=== PATIENT | female | born 1950 | race Caucasian/White ===

== ENCOUNTER → 2019-09-01 09:56 | Outpatient (BNVA) | payer MEDICARE, BC, SELFPAY | PROVIDERS: Family Provider Family Medicine; Visit Provider Specialist | DX: R29.90 Unspecified symptoms and signs involving the nervous system (principal); M50.90 Cervical disc disorder, unspecified, unspecified cervical region; G43.709 Chronic migraine without aura, not intractable, without status migrainosus | CPT/HCPCS: 99214 ==

== ENCOUNTER 2020-06-19 12:17 | Outpatient (CLI) | payer MEDICARE, BC, OTHER, SELFPAY ==
--- NOTE | 2020-06-19 12:45 | USCV_ITS ---
Meagan Gaytan Age: 69 Gender: F : 1950 Exam Date: 06/19/2020 12:54 Ordering Phys: Nhung Wiley MD ([email or web address]) Technologist: Purnima Nguyen Exam Location: [facility] – [place] Indication: SOB BP: 120 / 80 HR: 70 Rhythm: Sinus Technical Quality: Adequate MEASUREMENTS (Male / Female) Normal Values 2D ECHO LV Diastolic Diameter PLAX 3.4 cm 4.2 - 5.9 / 3.9 - 5.3 cm LV Systolic Diameter PLAX 2.0 cm LV Chamber Size 3.4 cm IVS Diastolic Thickness 1.3 cm 0.6 - 1.0 / 0.6 - 0.9 cm IVS Systolic Thickness 1.5 cm LVPW Diastolic Thickness 1.1 cm 0.6 - 1.0 / 0.6 - 0.9 cm LVPW Systolic Thickness 1.3 cm RV Chamber Size 3.4 cm LVOT Diameter 2.0 cm LV Ejection Fraction 2D Teich 73.5 % LV Ejection Fraction MOD 2C 60.1 % LV Ejection Fraction 2C AL 60.1 % LA Diameter 2.6 cm LA Width 1.8 cm LA Height 3.4 cm RA Width 3.3 cm RA Height 2.5 cm Aorta at Sinotubular Diameter 3.7 cm M-MODE LV Diastolic Diameter MM 2.5 cm 4.2 - 5.9 / 3.9 - 5.3 cm LV Systolic Diameter MM 1.6 cm LV Ejection Fraction MM Teich 66.8 % IVS Diastolic Thickness MM 0.8 cm 0.6 - 1.0 / 0.6 - 0.9 cm IVS Systolic Thickness MM 0.8 cm LVPW Diastolic Thickness MM 0.8 cm 0.6 - 1.0 / 0.6 - 0.9 cm LVPW Systolic Thickness MM 0.8 cm Aortic Annulus Diameter 3.5 cm LA Ao Ratio MM 0.8 MV E Point Septal Separation 0.2 cm DOPPLER AV Peak Velocity 141.0 cm/s LVOT Peak Velocity 114.0 cm/s AV Area Cont Eq vti 3.0 cm squared AV Area Cont Eq pk 2.5 cm squared MV Area PHT 3.9 cm squared Mitral E to A Ratio 1.3 MV E' Velocity 51.5 cm/s Mitral E to MV E' Ratio 10.2 Mitral E to LV E' Lateral Ratio 10.1 Mitral E to LV E' Septal Ratio 10.4 TR Peak Velocity 228.3 cm/s TR Peak Gradient 20.8 mmHg TR Mean Velocity 179.3 cm/s TR Mean Gradient 13.8 mmHg TR Velocity Time Integral 65.7 cm TV Peak E Velocity 46.0 cm/s Right Atrial Pressure 3.0 mmHg Pulmonary Artery Systolic Pressu 23.8 mmHg PV Peak Velocity 50.0 cm/s RV Acceleration Time 0.1 s RV Ejection Time 0.3 s RV AcT/ET 0.3 FINDINGS Left Ventricle Normal left ventricular cavity size. Normal left ventricular systolic function. No regional wall motion abnormalities. Left ventricular ejection fraction is estimated at 66 %. Grade I/IV diastolic dysfunction (abnormal relaxation filling pattern), normal to mildly elevated filling pressures. Right Ventricle The right ventricle is normal in size and function. Right Atrium The right atrium is normal in size. Left Atrium The left atrium is normal in size. Mitral Valve Moderately thickened mitral valve. No mitral valve stenosis. Mild-moderate mitral valve regurgitation. Aortic Valve Aortic valve sclerosis without stenosis or regurgitation. Tricuspid Valve Structurally normal tricuspid valve without significant stenosis or regurgitation. Pulmonary artery systolic pressure is normal. Pulmonic Valve Structurally normal pulmonic valve without significant stenosis. There is no pulmonic regurgitation. Pericardium Normal pericardium without effusion. Aorta Normal ascending aorta dimension. CONCLUSIONS 1-Normal left ventricular cavity size. Normal left ventricular systolic function. No regional wall motion abnormalities. Left ventricular ejection fraction is estimated at 66 %. Grade I/IV diastolic dysfunction (abnormal relaxation filling pattern), normal to mildly elevated filling pressures. 2-Moderately thickened mitral valve. No mitral valve stenosis. Mild-moderate mitral valve regurgitation. 3-Aortic valve sclerosis without stenosis or regurgitation. 4-Right atrial pressure is around 5 mm of mercury. 5-There are no prior echocardiogram studies to compare. Nhung Wiley MD (Electronically Signed) Final Date: 27 Jun 2020 22:47 S
== END 2020-06-19 12:18 | disposition home or self-care (01) ==
LOC: US 12:17
PROVIDERS: PCP Family Medicine; Visit Provider Internal Medicine Cardiovascular Disease
DX: R06.02 Shortness of breath (principal); I05.9 Rheumatic mitral valve disease, unspecified; I35.8 Other nonrheumatic aortic valve disorders
CPT/HCPCS: 93306

== ENCOUNTER → 2020-08-22 13:48 | Outpatient (BNVA) | payer MEDICARE, BC, OTHER, SELFPAY | PROVIDERS: PCP Family Medicine; Visit Provider Specialist | DX: M41.20 Other idiopathic scoliosis, site unspecified (principal); M62.81 Muscle weakness (generalized); M79.7 Fibromyalgia; M50.90 Cervical disc disorder, unspecified, unspecified cervical region | CPT/HCPCS: 99214 ==

== ENCOUNTER 2020-09-13 09:26 | Outpatient (RCR) | payer MEDICARE, BC, OTHER, SELFPAY | END 2020-09-16 23:59 | disposition home or self-care (01) | LOC: SPT 09:26 | PROVIDERS: PCP Family Medicine; Referring Provider Specialist; Visit Provider Specialist | DX: M41.20 Other idiopathic scoliosis, site unspecified (principal) | CPT/HCPCS: 97110; 97162 ==

== ENCOUNTER 2020-09-17 06:00 | Outpatient (RCR) | payer MEDICARE, BC, OTHER, SELFPAY | END 2020-10-17 23:59 | disposition home or self-care (01) | LOC: SPT 06:00 | PROVIDERS: PCP Family Medicine; Referring Provider Specialist; Visit Provider Specialist | DX: M41.20 Other idiopathic scoliosis, site unspecified (principal) | CPT/HCPCS: 97110 ==

== ENCOUNTER → 2020-11-29 10:37 | Outpatient (BNVA) | payer MEDICARE, BC, OTHER, SELFPAY | PROVIDERS: PCP Family Medicine; Visit Provider Specialist | DX: M79.7 Fibromyalgia (principal); R53.83 Other fatigue; M41.20 Other idiopathic scoliosis, site unspecified; I77.819 Aortic ectasia, unspecified site | CPT/HCPCS: 99214 ==

== ENCOUNTER → 2020-12-15 09:36 | Outpatient (BNVA) | payer MEDICARE, BC, OTHER, SELFPAY | PROVIDERS: PCP Family Medicine; Visit Provider Family Medicine | DX: Z13.6 Encounter for screening for cardiovascular disorders (principal); I10 Essential (primary) hypertension; Z86.39 Personal history of other endocrine, nutritional and metabolic disease; K59.09 Other constipation; Z86.010 Personal history of colon polyps; Z68.22 Body mass index [BMI] 22.0-22.9, adult; Z71.89 Other specified counseling | CPT/HCPCS: 80053; 80061; 81000; 82306; 85025 ==

== ENCOUNTER → 2021-01-31 13:32 | Outpatient (BNVA) | payer MEDICARE, BC, OTHER, SELFPAY | PROVIDERS: PCP Family Medicine; Visit Provider Specialist | DX: G43.709 Chronic migraine without aura, not intractable, without status migrainosus (principal); M41.20 Other idiopathic scoliosis, site unspecified; M50.90 Cervical disc disorder, unspecified, unspecified cervical region; M62.81 Muscle weakness (generalized); I47.1 Supraventricular tachycardia; F41.8 Other specified anxiety disorders | CPT/HCPCS: 99214 ==

== ENCOUNTER → 2021-02-20 09:25 | Outpatient (BNVA) | payer MEDICARE, BC, OTHER, SELFPAY | PROVIDERS: PCP Family Medicine; Visit Provider Nurse Practitioner Family | DX: I10 Essential (primary) hypertension (principal); I77.810 Thoracic aortic ectasia; Z13.6 Encounter for screening for cardiovascular disorders | CPT/HCPCS: 80061; 83735 ==

== ENCOUNTER 2021-05-01 16:00 | Outpatient (CLI) | payer MEDICARE, BC, OTHER, SELFPAY | END 2021-05-01 16:01 | disposition home or self-care (01) | LOC: SLEEP 05-02 17:06 | PROVIDERS: PCP Family Medicine; Visit Provider Nurse Practitioner Family | DX: M41.20 Other idiopathic scoliosis, site unspecified (principal); F41.8 Other specified anxiety disorders; G43.709 Chronic migraine without aura, not intractable, without status migrainosus; N31.9 Neuromuscular dysfunction of bladder, unspecified; I10 Essential (primary) hypertension; G47.19 Other hypersomnia; G47.34 Idiopathic sleep related nonobstructive alveolar hypoventilation | CPT/HCPCS: 99213; 99214; 99215; G0399 ==

== ENCOUNTER → 2021-07-02 12:18 | Outpatient (BNVA) | payer MEDICARE, BC, OTHER, SELFPAY | PROVIDERS: PCP Family Medicine; Visit Provider Internal Medicine | DX: I47.1 Supraventricular tachycardia (principal); I10 Essential (primary) hypertension; I77.810 Thoracic aortic ectasia | CPT/HCPCS: 99213 ==

== ENCOUNTER → 2021-08-07 12:19 | Outpatient (BNVA) | payer MEDICARE, BC, OTHER, SELFPAY | PROVIDERS: PCP Family Medicine; Visit Provider Specialist | DX: G43.709 Chronic migraine without aura, not intractable, without status migrainosus (principal); M50.90 Cervical disc disorder, unspecified, unspecified cervical region; M41.80 Other forms of scoliosis, site unspecified | CPT/HCPCS: 99214 ==

== ENCOUNTER → 2021-08-14 10:11 | Outpatient (BNVA) | payer MEDICARE, BC, OTHER, SELFPAY | PROVIDERS: PCP Family Medicine; Referring Provider Specialist; Visit Provider Orthopaedic Surgery | DX: Z53.9 Procedure and treatment not carried out, unspecified reason (principal) ==

== ENCOUNTER → 2021-09-04 10:00 | Outpatient (BNVA) | payer MEDICARE, BC, OTHER, SELFPAY | PROVIDERS: PCP Family Medicine; Visit Provider Orthopaedic Surgery | DX: M41.80 Other forms of scoliosis, site unspecified (principal); M54.2 Cervicalgia; M41.9 Scoliosis, unspecified | CPT/HCPCS: 99204 ==

== ENCOUNTER → 2021-09-20 14:17 | Outpatient (BNVA) | payer MEDICARE, BC, OTHER, SELFPAY | PROVIDERS: PCP Family Medicine; Visit Provider Nurse Practitioner Family | DX: I10 Essential (primary) hypertension (principal); I47.1 Supraventricular tachycardia | CPT/HCPCS: 93005; 99213; 99214 ==

== ENCOUNTER → 2021-09-21 12:17 | Outpatient (BNVA) | payer MEDICARE, BC, OTHER, SELFPAY | PROVIDERS: PCP Family Medicine; Visit Provider Family Medicine | DX: J06.9 Acute upper respiratory infection, unspecified (principal); R53.83 Other fatigue; Z20.822 Contact with and (suspected) exposure to COVID-19 | CPT/HCPCS: 80053; 85025; 87426; 87635 ==

== ENCOUNTER → 2021-10-03 08:19 | Outpatient (BNVA) | payer MEDICARE, BC, OTHER, SELFPAY | PROVIDERS: PCP Family Medicine; Visit Provider Specialist | DX: M21.41 Flat foot [pes planus] (acquired), right foot (principal); M21.42 Flat foot [pes planus] (acquired), left foot; M79.671 Pain in right foot; M79.672 Pain in left foot; F41.8 Other specified anxiety disorders; G43.709 Chronic migraine without aura, not intractable, without status migrainosus | CPT/HCPCS: 99203; 99204; 99213 ==

== ENCOUNTER → 2021-10-17 15:40 | Outpatient (BNVA) | payer MEDICARE, BC, OTHER, SELFPAY | PROVIDERS: PCP Family Medicine; Visit Provider Otolaryngology | DX: M26.623 Arthralgia of bilateral temporomandibular joint (principal); H92.02 Otalgia, left ear; R04.0 Epistaxis; R26.81 Unsteadiness on feet; M41.80 Other forms of scoliosis, site unspecified | CPT/HCPCS: 99203; 99205 ==

== ENCOUNTER 2021-11-14 15:11 | Oncology outpatient (recurring) (ONCR) | payer MEDICARE, BC, OTHER, SELFPAY ==
[2021-11-14 16:59] LABS: Basophils % 0.3 %; Eosinophils % 0.7 %; Hemoglobin 14.9 g/dL (11.5-15.3); Lymphocytes # 2.6 10^3/uL (0.8-4.8); Lymphocytes % 42.6 %; Mean Corpuscular HGB Conc 32.4 g/dL (30.0-36.0); Mean Corpuscular Hemoglobin 29.4 pg (28.0-34.0); Mean Corpuscular Volume 90.7 fl (81-99); Mean Platelet Volume 9.9 fL (7.4-10.4); Monocytes # 0.4 10^3/uL (0.2-0.9); Monocytes % 6.9 %; Neutrophils # 3.01 10^3/uL (1.8-7.7); Neutrophils % 49.5 %; Nucleated Red Blood Cells % 0 %; Platelet Count 154 10^3/cmm (130-400); Red Blood Count 5.07 10^6/uL (4.1-5.3); Red Cell Distribution Width 13.1 % (12.1-15.1); White Blood Count 6.1 10^3/uL (4.0-10.0)
[2021-11-14 17:12] LABS: LAB Peripheral Smear Sent for Review
[2021-11-14 17:35] LABS: Alanine Aminotransferase 10 U/L (0-33); Albumin Level 4.1 g/dL (3.5-5.2); Alkaline Phosphatase 82 U/L (35-105); Anion Gap 12.8 (5-19); Aspartate Amino Transferase 16 U/L (0-32); Blood Urea Nitrogen 18 mg/dL (8-23); Calcium 9.2 mg/dL (8.5-10.5); Carbon Dioxide 29 mmol/L (22-29); Chloride 102 mmol/L (98-107); Globulin 2.7 g/dL (1.3-4.6); Glomerular Filtration Rate 99.1 mL/min (90-130); Glucose 67 mg/dL (65-115); Lactate Dehydrogenase 164 U/L (135-214); Osmolality Calculated 290 mOsm/kg (285-295); Potassium 3.8 mmol/L (3.5-5.1); Sodium 140 mmol/L (136-145); Thyroid Stimulating Hormone 1.12 uIU/mL (0.27-4.20); Total Bilirubin 0.3 mg/dL (0.15-1.2); Total Protein 6.8 g/dL (6.6-8.7)
[2021-11-16 15:44] LABS: Erythropoietin 10.6 mIU/mL (2.6-18.5)
[2021-11-20 10:27] LABS: CALR Exon 9 Mutation NOT DETECTED (NOT DETECTED); CSF3R Exon 14/17 Mutation NOT DETECTED (NOT DETECTED); JAK2 Exon 12 Mutation NOT DETECTED (NOT DETECTED); JAK2 V617 Block Specimen ID NG; JAK2 V617 Clinical Indication NG; JAK2 V617 Mutation NOT DETECTED (NOT DETECTED); JAK2 V617 Specimen Source NG; MPL Exon 12 Mutation NOT DETECTED (NOT DETECTED)
== END 2021-11-16 23:59 | disposition home or self-care (01) ==
LOC: ONCMED 15:11
PROVIDERS: PCP Family Medicine; Visit Provider Internal Medicine Medical Oncology
DX: D75.1 Secondary polycythemia (principal); R53.83 Other fatigue; G47.36 Sleep related hypoventilation in conditions classified elsewhere; J98.4 Other disorders of lung
CPT/HCPCS: 80053; 81219; 81270; 81339; 81403; 81479; 82668; 83615; 84443; 85025; 99205

== ENCOUNTER 2021-12-28 10:55 | Emergency (ER) | payer MEDICARE, BC, OTHER, SELFPAY ==
[2021-12-28 11:47] VITALS: BP 129/85; PULSE 100; RESP 16; TEMP 36.4; O2SAT 95; BMI 21.2
--- NOTE | 2021-12-28 11:51 | ECG_ITS ---
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 Measurements Intervals [place] Rate: 87 P: -8 [place]: 149 QRS: 41 QRSD: 72 T: 0 QT: 351 QTc: 424 Interpretive Statements SINUS RHYTHM Compared to ECG 06/14/2018 12:08:42 No significant changes Electronically Signed On 12-29-2021 14:10:33 [employer]OP[employer] by Monica Carlin M.D. [email or web address] specialty hospital of greenvilleRelationship Analyticsohio state [id number]
== END 2021-12-28 16:05 | disposition left against medical advice (07) ==
PROVIDERS: Emergency Provider Family Medicine; PCP Family Medicine
DX: Z53.21 Procedure and treatment not carried out due to patient leaving prior to being seen by health care provider (principal)
CPT/HCPCS: 93005

== ENCOUNTER → 2022-01-03 09:02 | Outpatient (BNVA) | payer MEDICARE, BC, OTHER, SELFPAY | PROVIDERS: PCP Family Medicine; Visit Provider Nurse Practitioner Family | DX: I20.8 Other forms of angina pectoris (principal); I10 Essential (primary) hypertension | CPT/HCPCS: 99213 ==

== ENCOUNTER → 2022-01-28 12:55 | Outpatient (BNVA) | payer MEDICARE, BC, OTHER, SELFPAY | PROVIDERS: PCP Family Medicine; Visit Provider Specialist | DX: G43.709 Chronic migraine without aura, not intractable, without status migrainosus (principal); M62.81 Muscle weakness (generalized); M79.7 Fibromyalgia; M50.90 Cervical disc disorder, unspecified, unspecified cervical region; M79.643 Pain in unspecified hand; F41.8 Other specified anxiety disorders; M41.86 Other forms of scoliosis, lumbar region | CPT/HCPCS: 99214 ==

== ENCOUNTER → 2022-04-03 10:41 | Outpatient (BNVA) | payer MEDICARE, BC, OTHER, SELFPAY | PROVIDERS: PCP Family Medicine; Referring Provider Specialist; Visit Provider Specialist | DX: M79.643 Pain in unspecified hand (principal); R20.2 Paresthesia of skin; M25.512 Pain in left shoulder | CPT/HCPCS: 95910; 95912 ==

== ENCOUNTER → 2022-04-25 09:23 | Outpatient (BNVA) | payer MEDICARE, BC, OTHER, SELFPAY | PROVIDERS: PCP Family Medicine; Visit Provider Physician Assistant | DX: M41.85 Other forms of scoliosis, thoracolumbar region (principal); M47.812 Spondylosis without myelopathy or radiculopathy, cervical region; M50.30 Other cervical disc degeneration, unspecified cervical region | CPT/HCPCS: 72050; 99214 ==

== ENCOUNTER → 2022-05-01 10:18 | Outpatient (BNVA) | payer MEDICARE, BC, OTHER, SELFPAY | PROVIDERS: PCP Family Medicine; Visit Provider Otolaryngology | DX: R04.0 Epistaxis (principal); M26.622 Arthralgia of left temporomandibular joint; J30.0 Vasomotor rhinitis | CPT/HCPCS: 99213 ==

== ENCOUNTER 2022-06-27 14:37 | Emergency (ER) | payer MEDICARE, BC, OTHER, SELFPAY ==
[2022-06-27 15:05] VITALS: BP 143/93; PULSE 73; RESP 18; TEMP 36.3; O2SAT 97
--- NOTE | 2022-06-27 15:32 | W.ED.EXTPRO ---
HPI - Extremity Problem General: Chief complaint: Extremity Problem,Nontraumatic Stated complaint: Lambert sent for possible bloodclot, right leg Time Seen by Provider: 06/27/22 15:32 History of Present Illness: Ms. Gaytan is a 71-year-old lady presenting to the emergency department for right lower extremity pain and swelling with concern for DVT. She notes history of varicose veins however for 5 days ago started having increased pain and swelling as well as warmth. She notes pain with ambulation. No history of DVT. No other specific changes in health, exacerbating, or alleviating factors identified. Onset (ago): day(s) Pain Consistency: constant Relieving factors: nothing Exacerbating factors: walking, exertion and palpation Review of Systems General: Reports: 10 or more systems reviewed and unremarkable except in HPI and below PFSH ED PFSH: Medical History Anxiety Aortic root dilatation Chronic migraine Depression GERD (gastroesophageal reflux disease) History of colon polyps HTN (hypertension) Neuropathy Osteopenia PAH (pulmonary artery hypertension) Restrictive lung disease Scoliosis SVT (supraventricular tachycardia) Surgical History No pertinent past surgical history Family History Mother Cancer CAD (coronary artery disease) Hypertension Stroke Cancer of colon with rectum Brother Cancer brain Mother CAD (coronary artery disease) Hypertension Cancer Brother Cancer Grandmother Dementia Psychiatric illness Suicide Other Diabetes Hyperlipidemia Denies family history of Clotting disorder Chronic kidney disease (CKD) Anesthesia complication Bleeding disorder Lung disease Social History Smoking and tobacco status: never smoked Second hand smoke exposure: Yes Alcohol intake: current Alcohol intake frequency: holidays/special occasions only Substance/Drug Use: never Lives independently: Yes Housing: House Marital status: / Physical Exam Const: COMMON NORMALS: alert GENERAL APPEARANCE: cooperative and well developed HENMT: COMMON NORMALS: normocephalic and atraumatic HEAD & SCALP: normocephalic and atraumatic THROAT: posterior oropharynx normal Eye: COMMON NORMALS: conjunctivae normal CONJUNCTIVA: Yes conjunctivae normal SCLERA: sclerae normal Neck/C-Spine: COMMON NORMALS: supple GENERAL: Yes trachea midline Resp: COMMON NORMALS: normal respiratory effort EFFORT & INSPECTION: Yes able to speak in complete sentences Cardio: COMMON NORMALS: regular rate and regular rhythm RATE: regular rate RHYTHM: regular rhythm GI: COMMON NORMALS: Soft to palpation PALPATION: Yes Soft to palpation and No Tenderness to palpation present (GI) PERCUSSION: normal to percussion Extremity: NARRATIVE EXTREMITY EXAM: Mild erythema and edema right lower extremity compared to contralateral side, there is prominence of varicose veins most significant in the lower leg. No evidence of wounds on the feet, palpable DP/PT and warm well-perfused foot. GENERAL: Yes normal exam except as noted and No edema Neuro: COMMON NORMALS: moves all extremities SENSORIUM/ORIENTATION: Yes alert and No Orientation impaired Psych: COMMON NORMALS: mental status grossly normal and Normal thought process present THOUGHT PROCESS: Normal thought process present Course Vital Signs: Vital signs: Vital Signs Temperature 97.4 F L 06/27/22 15:05 Pulse Rate 73 06/27/22 15:05 Respiratory Rate 18 06/27/22 15:05 Blood Pressure 143/93 06/27/22 15:05 Pulse Oximetry 97 06/27/22 15:05 Oxygen Delivery Me thod Room Air 06/27/22 15:05 MDM - Extremity (Nontraumatic) Medical Decision Making 71-year-old lady presenting with atraumatic leg pain. She does have prominent varicose veins with mild erythema and edema especially the calf region the right lower extremity. No evidence of infected joints or traumatic injury. Lab studies are essentially unremarkable, ultrasound negative for DVT and LINA is not suggestive of arterial disease. Most likely cause of symptoms is possibly phlebitis with superficial infection of varicose veins. The results of ED evaluation were discussed with the patient including prescriptions and/or symptomatic cares (if applicable) including appropriate and responsible use, followup plan, and return precautions. The patient verbalized understanding and felt safe for discharge. Medical Records I reviewed the patient's medical records. Lab Data I reviewed the patient's lab results. 06/27/22 15:54 06/27/22 15:54 Laboratory Results WBC 5.7 10^3/uL (4.0-10.0) 06/27/22 15:54 RBC 5.07 10^6/uL (4.1-5.3) 06/27/22 15:54 Hgb 14.4 g/dL (11.5-15.3) 06/27/22 15:54 Hct 46.2 % (37.0-47.0) 06/27/22 15:54 MCV 91.1 fl (81-99) 06/27/22 15:54 MCH 28.4 pg (28.0-34.0) 06/27/22 15:54 MCHC 31.2 g/dL (30.0-36.0) 06/27/22 15:54 RDW 13.1 % (12.1-15.1) 06/27/22 15:54 Plt Count 151 10^3/cmm (130-400) 06/27/22 15:54 MPV 10.0 fL (7.4-10.4) 06/27/22 15:54 Neut % (Auto) 61.4 % 06/27/22 15:54 Lymph % (Auto) 32.2 % 06/27/22 15:54 Aiken % (Auto) 5.6 % 06/27/22 15:54 Eos % (Auto) 0.4 % 06/27/22 15:54 Baso % (Auto) 0.2 % 06/27/22 15:54 Neut # (Auto) 3.51 10^3/uL (1.8-7.7) 06/27/22 15:54 Lymph # (Auto) 1.8 10^3/uL (0.8-4.8) 06/27/22 15:54 Aiken # (Auto) 0.3 10^3/uL (0.2-0.9) 06/27/22 15:54 Eos # (Auto) 0.0 10^3/uL (0.0-0.8) 06/27/22 15:54 Baso # (Auto) 0.0 10^3/uL (0.0-0.1) 06/27/22 15:54 Nucleated RBC % (auto) 0 % 06/27/22 15:54 Nucleated RBCs # 0.0 /100WBC 06/27/22 15:54 Sodium 137 mmol/L (136-145) 06/27/22 15:54 Potassium 3.9 mmol/L (3.5-5.1) 06/27/22 15:54 Chloride 102 mmol/L (98-107) 06/27/22 15:54 Carbon Dioxide 23 mmol/L (22-29) 06/27/22 15:54 Anion Gap 15.9 (5-19) 06/27/22 15:54 BUN 15 mg/dL (8-23) 06/27/22 15:54 Creatinine 0.7 mg/dL (0.5-0.9) 06/27/22 15:54 GFR Calculation 82.7 mL/min (90-130) L 06/27/22 15:54 Glucose 85 mg/dL (65-115) 06/27/22 15:54 Calculated Osmolality 284 mOsm/kg (285-295) L 06/27/22 15:54 Calcium 9.2 mg/dL (8.5-10.5) 06/27/22 15:54 Total Bilirubin 0.5 mg/dL (0.15-1.2) 06/27/22 15:54 AST 20 U/L (0-32) 06/27/22 15:54 ALT 12 U/L (0-33) 06/27/22 15:54 Alkaline Phosphatase 77 U/L (35-105) 06/27/22 15:54 Total Protein 6.9 g/dL (6.6-8.7) 06/27/22 15:54 Albumin 4.1 g/dL (3.5-5.2) 06/27/22 15:54 Globulin 2.8 g/dL (1.3-4.6) 06/27/22 15:54 Discharge Plan Discharge Patient Disposition: Home Clinical Impression: Phlebitis, Cellulitis Condition: Stable Prescriptions: New cephalexin 500 mg capsule 500 mg PO Q6H 10 Days Qty: 40 0RF No Action magnesium oxide 400 mg magnesium capsule 400 mg PO QDAY multivitamin Tablet 1 tab PO DAILY vitamin B complex [B Complex-Vitamin B12] Tablet 1 tab PO .once a week PRN cholecalciferol (vitamin D3) 25 mcg (1,000 unit) capsule 50 mcg PO DAILY PRN omega-3 fatty acids 1,000 mg capsule 1,000 mg PO DAILY nebivolol [Bystolic] 2.5 mg tablet 2.5 mg PO DAILY PRN (DME) Low Profile 3/4 length graphite Orthotics with tennis shoes See Rx Instructions .Route .MEDSUPPLY Qty: 1 0RF Rx Instructions: As directed by HAMIDA&O Discharge Orders: Discharge ED (Routine); Ordered 06/27/22 Ordered By: Christiano Durand Referrals: Asia Stearns DO [Primary Care Provider] - Discharge Diet: Usual diet Discharge Activity: Increase activity as tolerated Patient Instructions: Phlebitis (ED), Varicose Veins Activity Restrictions/Additional Instructions: Thank you for visiting the emergency department. You were seen and evaluated for leg pain and swelling. The most likely cause of your symptoms is related to inflammation and superficial infection of the varicose veins. This will be treated with antibiotics. There is a small risk of cross-reactivity with penicillins which are listed as an allergy for you. Please watch for signs of allergic reaction and return to emergency room for allergic reactions if they do occur. You may use [id number] medications such as acetaminophen and ibuprofen for pain however please do not exceed the daily recommended dosage as listed on the packaging and please keep in mind that many namebrand medications contain the same active ingredients. Please avoid these medications if previously instructed to do so by another physician due to other underlying medical condition. Please follow-up with your primary care provider. Return to the emergency department for worsening symptoms or anything else that you are concerned about and feel needs emergency department evaluation. Coding Level of Care Code ED Data Analyst Report Writer for Farhan Calderon
--- NOTE | 2022-06-27 15:40 | USCV_ITS ---
Meagan Gaytan Age: 71 Gender: F : 1950 Exam Date: 06/27/2022 16:24 Ordering Phys: Christiano Durand MD Technologist: MERLINE [place] [facility] [place]: Leg Pain RIGHT LEFT Brachial 127.00 mmHg Brachial 126.00 mmHg Pressure (mmHg) Waveform Pressure (mmHg) Waveform 152.00 SQUARE DANCE CALLER 146.00 152.00 DPA 142.00 1.19 Ankle/Brachial Index 1.14 FINDINGS Resting LINA 1.19 on the right side and 1.14 on the left side CONCLUSIONS Normal resting ABIs bilaterally No significant arterial obstruction, based on the above findings Dr Monica Carlin MD [facility] (Electronically Signed) Final Date: 27 Jun 2022 23:12 S
--- NOTE | 2022-06-27 15:40 | USCV_ITS ---
Meagan Gaytan Age: 71 Gender: F : 1950 Exam Date: 06/27/2022 16:10 Ordering Phys: Christiano Durand MD Technologist: MERLINE Exam Location: [facility] [place] Indication: Leg pain HISTORY: Lower extremity pain. PROCEDURES: Venous duplex imaging was performed in only the right lower extremity. The following venous structures were evaluated: common femoral vein, profunda vein, proximal portion of the greater saphenous vein, superficial femoral vein, and the popliteal vein. In addition, the posterior tibial and peroneal trunk were evaluated. Serial compression, augmentation maneuvers, and spectral Doppler flow evaluation were performed. FINDINGS: No evidence of DVT seen in any vessel visualized at this time. CONCLUSIONS No evidence of right lower extremity DVT. John De Santiago MD (Electronically Signed) Final Date: 27 Jun 2022 17:09 S
[2022-06-27 16:12] LABS: Basophils % 0.2 %; Eosinophils % 0.4 %; Hematocrit 46.2 % (37.0-47.0); Hemoglobin 14.4 g/dL (11.5-15.3); Lymphocytes # 1.8 10^3/uL (0.8-4.8); Lymphocytes % 32.2 %; Mean Corpuscular HGB Conc 31.2 g/dL (30.0-36.0); Mean Corpuscular Hemoglobin 28.4 pg (28.0-34.0); Mean Corpuscular Volume 91.1 fl (81-99); Monocytes # 0.3 10^3/uL (0.2-0.9); Monocytes % 5.6 %; Neutrophils # 3.51 10^3/uL (1.8-7.7); Neutrophils % 61.4 %; Nucleated Red Blood Cells % 0 %; Platelet Count 151 10^3/cmm (130-400); Red Blood Count 5.07 10^6/uL (4.1-5.3); Red Cell Distribution Width 13.1 % (12.1-15.1); White Blood Count 5.7 10^3/uL (4.0-10.0)
[2022-06-27 16:42] LABS: Alanine Aminotransferase 12 U/L (0-33); Albumin Level 4.1 g/dL (3.5-5.2); Alkaline Phosphatase 77 U/L (35-105); Anion Gap 15.9 (5-19); Aspartate Amino Transferase 20 U/L (0-32); Blood Urea Nitrogen 15 mg/dL (8-23); Calcium 9.2 mg/dL (8.5-10.5); Carbon Dioxide 23 mmol/L (22-29); Chloride 102 mmol/L (98-107); Globulin 2.8 g/dL (1.3-4.6); Glomerular Filtration Rate 82.7 mL/min (90-130); Glucose 85 mg/dL (65-115); Osmolality Calculated 284 mOsm/kg (285-295); Potassium 3.9 mmol/L (3.5-5.1); Sodium 137 mmol/L (136-145); Total Bilirubin 0.5 mg/dL (0.15-1.2); Total Protein 6.9 g/dL (6.6-8.7)
== END 2022-06-27 17:32 | disposition home or self-care (01) ==
PROVIDERS: Emergency Provider Emergency Medicine; PCP Family Medicine
DX: I80.3 Phlebitis and thrombophlebitis of lower extremities, unspecified (principal); L03.115 Cellulitis of right lower limb; I10 Essential (primary) hypertension; Z77.22 Contact with and (suspected) exposure to environmental tobacco smoke (acute) (chronic); M79.604 Pain in right leg
CPT/HCPCS: 80053; 85025; 93922; 93971; 99284

== ENCOUNTER → 2022-07-01 12:13 | Outpatient (BNVA) | payer MEDICARE, BC, OTHER, SELFPAY | PROVIDERS: PCP Family Medicine; Visit Provider Internal Medicine | DX: I47.1 Supraventricular tachycardia (principal); I10 Essential (primary) hypertension; I77.810 Thoracic aortic ectasia; I83.813 Varicose veins of bilateral lower extremities with pain | CPT/HCPCS: 99213; 99214 ==

== ENCOUNTER → 2022-07-03 12:14 | Outpatient (BNVA) | payer MEDICARE, BC, OTHER, SELFPAY | PROVIDERS: PCP Family Medicine; Visit Provider Specialist | DX: I83.813 Varicose veins of bilateral lower extremities with pain (principal); M47.812 Spondylosis without myelopathy or radiculopathy, cervical region; R26.81 Unsteadiness on feet; M41.80 Other forms of scoliosis, site unspecified | CPT/HCPCS: 99213 ==

== ENCOUNTER → 2022-07-30 13:18 | Outpatient (BNVA) | payer MEDICARE, BC, OTHER, SELFPAY | PROVIDERS: PCP Family Medicine; Visit Provider Physician Assistant | DX: M51.36 Other intervertebral disc degeneration, lumbar region (principal); M54.9 Dorsalgia, unspecified; M41.80 Other forms of scoliosis, site unspecified | CPT/HCPCS: 99213 ==

== ENCOUNTER 2022-07-31 11:50 | Outpatient (CLI) | payer MEDICARE, BC, OTHER, SELFPAY ==
--- NOTE | 2022-07-31 12:30 | USCV_ITS ---
Meagan Gaytan Age: 71 Gender: F : 1950 Exam Date: 07/31/2022 12:34 Ordering Phys: Sonido Maldonado M.D ([email or web address]) Technologist: Slim Lynne [place] [facility] [place]ication: HISTORY: PROCEDURES: FINDINGS: There is no evidence of bilateral deep vein thrombosis. No evidence of superficial thrombosis in the bilateral saphenous system. There is evidence of reflux noted in the deep system at the location of the right femoral vein. There is evidence of reflux in the the greater saphenous within the right lower extremity at the locations of the SFJ, GSV dist to SFJ, GSV PROX, GSV MID, GSV DIST. the reflux times at the segments where 1.52, 1.1, 1.67, 1.92 and 2.02 secs respectively. These venous segments were at a depth of 1.67, 0.94, 0.83, 1.23 and 1.24 cm respectively from the surface. The venous dimensions were ranging anywhere from 0.69 to 1.21 cm. There is reflux noted in the left GSV prox. The venous segment was measuring 0.37 in diameter and atrial depth of 0.92 cm. The reflux time was 2.82 seconds No venous reflux noted in the bilateral small saphenous vein. The veins were found to be easily compressible with spontaneous blood flow. Non pulsatile flow pattern. CONCLUSIONS 1. No evidence of DVT in the above-mentioned identifiable veins 2. Significant venous reflux of greater than 500 ms were noted throughout the greater saphenous vein segments at the above-knee level on the right side, including the saphenofemoral junction. The greater saphenous vein segment distal to the saphenofemoral junction and the proximal greater saphenous vein segments were found to be less than 1 cm deep from the surface. The venous diameter and reflux times are as mentioned above. 3. Significant venous reflux of greater than 500 ms was noted at the proximal greater saphenous vein segment on the left side. But this venous segment was then less than 1 cm deep from the surface. 4. No significant reflux in the deep veins Dr Monica Carlin MD [facility] (Electronically Signed) Final Date: 15 August 2022 16:24 S
== END 2022-07-31 11:51 | disposition home or self-care (01) ==
LOC: RAD 11:54
PROVIDERS: PCP Family Medicine; Visit Provider Internal Medicine
DX: I83.90 Asymptomatic varicose veins of unspecified lower extremity (principal); R06.02 Shortness of breath; I34.0 Nonrheumatic mitral (valve) insufficiency; I07.1 Rheumatic tricuspid insufficiency; I77.810 Thoracic aortic ectasia
CPT/HCPCS: 93970

== ENCOUNTER 2022-08-07 11:10 | Outpatient (CLI) | payer MEDICARE, BC, OTHER, SELFPAY ==
--- NOTE | 2022-08-07 | USCV_ITS ---
Meagan Gaytan Age: 71 Gender: F : 1950 Exam Date: 08/07/2022 11:43 Ordering Phys: Sonido Maldonado M.D Technologist: CT Exam Location: [facility] – [place] Indication: SHORTNESS OF BREATH BP: 130 / 70 HR: 68 Rhythm: Sinus Technical Quality: Adequate MEASUREMENTS (Male / Female) Normal Values 2D ECHO LV Diastolic Diameter PLAX 2.7 cm 4.2 - 5.9 / 3.9 - 5.3 cm LV Systolic Diameter PLAX 2.3 cm IVS Diastolic Thickness 0.8 cm 0.6 - 1.0 / 0.6 - 0.9 cm IVS Systolic Thickness 1.6 cm LVPW Diastolic Thickness 1.2 cm 0.6 - 1.0 / 0.6 - 0.9 cm LVPW Systolic Thickness 1.6 cm LVOT Diameter 2.2 cm LV Ejection Fraction 2D Teich 21.6 % LV Ejection Fraction MOD 2C 70.7 % LV Ejection Fraction 2C AL 70.7 % LA Diameter 3.9 cm Aorta at Sinotubular Diameter 3.1 cm IVC Diameter 1.5 cm M-MODE Aortic Annulus Diameter 3.4 cm LA Ao Ratio MM 1.3 MV E Point Septal Separation 0.8 cm DOPPLER AV Peak Velocity 150.0 cm/s LVOT Peak Velocity 121.0 cm/s AV Area Cont Eq vti 3.1 cm squared AV Area Cont Eq pk 3.0 cm squared MV Peak Velocity 99.0 cm/s MV Area PHT 3.4 cm squared Mitral E to A Ratio 1.0 MV E' Velocity 58.8 cm/s Mitral E to MV E' Ratio 9.5 Mitral E to LV E' Lateral Ratio 8.2 Mitral E to LV E' Septal Ratio 11.5 TR Peak Velocity 278.5 cm/s TR Peak Gradient 31.0 mmHg TR Mean Velocity 195.5 cm/s TR Mean Gradient 18.5 mmHg TR Velocity Time Integral 55.4 cm TV Peak E Velocity 100.0 cm/s Right Atrial Pressure 3.0 mmHg Pulmonary Artery Systolic Pressu 34.0 mmHg PV Peak Velocity 95.0 cm/s FINDINGS Left Ventricle Left ventricle is normal in size. LV systolic function is normal with EF of 55 to 60%. No regional wall motion abnormalities are seen. Right Ventricle Normal in size and function. Right Atrium Normal in size Left Atrium Dilated Mitral Valve Structurally normal mitral valve. Mild mitral regurgitation. Aortic Valve Grossly normal. No significant stenosis or regurgitation. Tricuspid Valve Mild tricuspid regurgitation. Insufficient TR jet to calculate RVSP. Pulmonic Valve Not well visualized Pericardium Normal Aorta Ascending aorta is mildly dilated with diameter of 3.7 cm. IVC Appears to be normal CONCLUSIONS LV systolic function is normal with EF 55 to 60%. Left atrial dilation Mild mitral regurgitation Mild tricuspid regurgitation Ascending aorta is mildly dilated with diameter of 3.7 cm. Compared to prior echocardiogram from 2020, patient now has mildly dilated ascending aorta. Sondio Maldonado MD (Electronically Signed) Final Date: 10 August 2022 17:30 S
== END 2022-08-07 11:11 | disposition home or self-care (01) ==
LOC: RAD 11:11
PROVIDERS: PCP Family Medicine; Visit Provider Internal Medicine
DX: R06.02 Shortness of breath (principal); I34.0 Nonrheumatic mitral (valve) insufficiency; I07.1 Rheumatic tricuspid insufficiency; I77.810 Thoracic aortic ectasia
CPT/HCPCS: 93306; 99213; 99214

== ENCOUNTER → 2022-10-14 12:35 | Outpatient (BNVA) | payer MEDICARE, BC, OTHER, SELFPAY | PROVIDERS: PCP Family Medicine; Referring Provider Specialist; Visit Provider Internal Medicine | DX: M81.0 Age-related osteoporosis without current pathological fracture (principal); E55.9 Vitamin D deficiency, unspecified; I10 Essential (primary) hypertension | CPT/HCPCS: 99205 ==

== ENCOUNTER → 2022-12-24 12:24 | Outpatient (BNVA) | payer MEDICARE, BC, OTHER, SELFPAY | PROVIDERS: PCP Family Medicine; Visit Provider Specialist | DX: G43.709 Chronic migraine without aura, not intractable, without status migrainosus (principal); M50.90 Cervical disc disorder, unspecified, unspecified cervical region; F41.8 Other specified anxiety disorders; M81.0 Age-related osteoporosis without current pathological fracture; M41.52 Other secondary scoliosis, cervical region | CPT/HCPCS: 99214 ==

== ENCOUNTER → 2023-07-02 12:51 | Outpatient (BNVA) | payer MEDICARE, BC, OTHER, SELFPAY | PROVIDERS: PCP Family Medicine; Visit Provider Specialist | DX: R29.90 Unspecified symptoms and signs involving the nervous system (principal); M41.20 Other idiopathic scoliosis, site unspecified; M50.90 Cervical disc disorder, unspecified, unspecified cervical region; G43.709 Chronic migraine without aura, not intractable, without status migrainosus; F41.8 Other specified anxiety disorders | CPT/HCPCS: 99214 ==

== ENCOUNTER → 2023-12-31 14:30 | Outpatient (BNVA) | payer MEDICARE, BC, OTHER, SELFPAY | PROVIDERS: PCP Family Medicine; Visit Provider Specialist | DX: R29.90 Unspecified symptoms and signs involving the nervous system (principal); G43.709 Chronic migraine without aura, not intractable, without status migrainosus; M50.90 Cervical disc disorder, unspecified, unspecified cervical region; M41.80 Other forms of scoliosis, site unspecified; F41.8 Other specified anxiety disorders; Z53.21 Procedure and treatment not carried out due to patient leaving prior to being seen by health care provider | CPT/HCPCS: G0463 ==

== ENCOUNTER → 2024-03-17 07:59 | Outpatient (BNVA) | payer MEDICARE, BC, OTHER, SELFPAY | PROVIDERS: PCP Family Medicine; Visit Provider Specialist | DX: G43.709 Chronic migraine without aura, not intractable, without status migrainosus (principal); M41.80 Other forms of scoliosis, site unspecified; M50.90 Cervical disc disorder, unspecified, unspecified cervical region; F41.8 Other specified anxiety disorders | CPT/HCPCS: 99215 ==

== ENCOUNTER 2024-07-01 20:00 | Outpatient (CLI) | payer MEDICARE, BC, OTHER, SELFPAY | END 2024-07-01 20:01 | disposition home or self-care (01) | LOC: SLEEP 23:30 | PROVIDERS: PCP Family Medicine; Visit Provider Obstetrics & Gynecology Gynecologic Oncology | DX: G47.33 Obstructive sleep apnea (adult) (pediatric) (principal) | CPT/HCPCS: 95810 ==

== ENCOUNTER → 2024-09-01 08:58 | Outpatient (BNVA) | payer MEDICARE, BC, OTHER, SELFPAY | PROVIDERS: PCP Family Medicine; Visit Provider Podiatrist Foot & Ankle Surgery | DX: M79.671 Pain in right foot (principal); M79.672 Pain in left foot; M21.41 Flat foot [pes planus] (acquired), right foot; M21.42 Flat foot [pes planus] (acquired), left foot; M20.11 Hallux valgus (acquired), right foot; M20.12 Hallux valgus (acquired), left foot; M77.42 Metatarsalgia, left foot; L84 Corns and callosities | CPT/HCPCS: 73630; 99214 ==

== ENCOUNTER → 2024-09-02 13:42 | Outpatient (BNVA) | payer MEDICARE, BC, OTHER, SELFPAY | PROVIDERS: PCP Family Medicine; Visit Provider Internal Medicine | DX: I47.10 Supraventricular tachycardia, unspecified (principal); I10 Essential (primary) hypertension; I77.810 Thoracic aortic ectasia; I83.813 Varicose veins of bilateral lower extremities with pain | CPT/HCPCS: 99214 ==

== ENCOUNTER → 2024-09-14 07:55 | Outpatient (BNVA) | payer MEDICARE, BC, OTHER, SELFPAY | PROVIDERS: PCP Family Medicine; Visit Provider Specialist | DX: H93.233 Hyperacusis, bilateral (principal); M41.50 Other secondary scoliosis, site unspecified; M50.90 Cervical disc disorder, unspecified, unspecified cervical region; R45.89 Other symptoms and signs involving emotional state; G43.109 Migraine with aura, not intractable, without status migrainosus | CPT/HCPCS: 99214 ==

== ENCOUNTER 2024-10-20 13:59 | Outpatient (CLI) | payer MEDICARE, BC, OTHER, SELFPAY | END 2024-10-20 14:00 | disposition home or self-care (01) | LOC: SPT 14:00 | PROVIDERS: PCP Family Medicine; Visit Provider Podiatrist Foot & Ankle Surgery | DX: Z46.89 Encounter for fitting and adjustment of other specified devices (principal); M20.41 Other hammer toe(s) (acquired), right foot; M20.42 Other hammer toe(s) (acquired), left foot; M21.41 Flat foot [pes planus] (acquired), right foot; M21.42 Flat foot [pes planus] (acquired), left foot | CPT/HCPCS: L3030 ==

== ENCOUNTER → 2024-12-23 13:38 | Outpatient (BNVA) | payer MEDICARE, BC, OTHER, SELFPAY | PROVIDERS: PCP Family Medicine; Visit Provider Internal Medicine | DX: J30.9 Allergic rhinitis, unspecified (principal); G47.36 Sleep related hypoventilation in conditions classified elsewhere; T78.40XA Allergy, unspecified, initial encounter; X58.XXXA Exposure to other specified factors, initial encounter | CPT/HCPCS: 36415; 86003; 99203; Q3014 ==

== ENCOUNTER 2025-01-18 11:11 | Outpatient (CLI) | payer BC, OTHER, SELFPAY | END 2025-01-18 11:12 | disposition home or self-care (01) | LOC: SLEEP 11:12 | PROVIDERS: PCP Family Medicine; Referring Provider Internal Medicine; Visit Provider Internal Medicine | DX: J30.9 Allergic rhinitis, unspecified (principal) | CPT/HCPCS: 94762 ==

== ENCOUNTER → 2025-01-27 10:52 | Outpatient (BNVA) | payer MEDICARE, BC, OTHER, SELFPAY | PROVIDERS: PCP Family Medicine; Visit Provider Internal Medicine | DX: J30.9 Allergic rhinitis, unspecified (principal); M41.9 Scoliosis, unspecified; G47.36 Sleep related hypoventilation in conditions classified elsewhere | CPT/HCPCS: 99213; Q3014 ==